=== PATIENT | female | born 1950 | race Caucasian/White ===

== ENCOUNTER 2024-06-11 09:16 | Day surgery (SDC) | payer MEDICARE ==
[~2024-06-11] VITALS: Ht 165.1 cm; Wt 64.0 kg
[~2024-06-11 09:16] MED LIST: ATOR40TA75 PO; CALC600T61 PO; LISI2.5T9 PO; LR 1,000 ML IV SCH; MIDAZOLAM INJ 2MG/2ML VIAL As Ordered ONE; fentaNYL 100 MCG/2 ML INJECTION As Ordered ONE
[2024-06-11] MEDS: CYCLOPENTOLATE 1% OPHTH SOLN 2ML BTL OD SCH (09:32)
[2024-06-11] MEDS: PHENYLEPHRINE 2.5% OPHTH SOL 2ML OD SCH (09:32)
[2024-06-11] MEDS: TETRACAINE 0.5% OPHTH SOLN 4ML OD SCH (09:32)
[2024-06-11] MEDS: FLURBIPROFEN 0.03% OPHTH SOLN 2.5 ML OD SCH (09:32)
[2024-06-11] MEDS: LIDOCAINE 1% SDV 5ML VIAL As Ordered ONE (10:28)
[2024-06-11] MEDS: CEFUROXIME 1MG/0.1ML INTRACAMERAL INJ As Ordered ONE (10:28)
[2024-06-11 10:45] VITALS: BP 136/60; TEMP 97.6; O2SAT 99
== END 2024-06-11 11:20 | disposition home or self-care (01) ==
LOC: M SDC 09:16
PROVIDERS: ATTEND Ophthalmology
DX: H25.013 Cortical age-related cataract, bilateral (principal); I10 Essential (primary) hypertension; E78.00 Pure hypercholesterolemia, unspecified; Z79.899 Other long term (current) drug therapy; Z91.048 Other nonmedicinal substance allergy status; Z91.040 Latex allergy status
CPT/HCPCS: 66984; J0697; J2250; J3010; V2632

== ENCOUNTER 2024-07-02 09:20 | Day surgery (SDC) | payer MEDICARE ==
[~2024-07-02] VITALS: Ht 165.1 cm; Wt 62.9 kg
[~2024-07-02 09:20] MED LIST changes: -MIDAZOLAM INJ 2MG/2ML VIAL As Ordered ONE; -fentaNYL 100 MCG/2 ML INJECTION As Ordered ONE
[2024-07-02] MEDS: CYCLOPENTOLATE 1% OPHTH SOLN 2ML BTL OS SCH (10:58)
[2024-07-02] MEDS: PHENYLEPHRINE 2.5% OPHTH SOL 2ML OS SCH (10:58)
[2024-07-02] MEDS: TETRACAINE 0.5% OPHTH SOLN 4ML OS SCH (10:59)
[2024-07-02] MEDS: FLURBIPROFEN 0.03% OPHTH SOLN 2.5 ML OS SCH (10:59)
[2024-07-02] MEDS ORDERED: propofoL 200 MG/20 ML VIAL As Ordered ONE (12:12)
[2024-07-02] MEDS ORDERED: LIDOCAINE 2% 100MG/5ML SDV (FOR ANES.) As Ordered ONE (12:12)
[2024-07-02] MEDS: LIDOCAINE 1% SDV 5ML VIAL As Ordered ONE (12:55)
[2024-07-02] MEDS: CEFUROXIME 1MG/0.1ML INTRACAMERAL INJ As Ordered ONE (12:56)
[2024-07-02 13:10] VITALS: BP 163/81; TEMP 97.5; O2SAT 98
== END 2024-07-02 13:33 | disposition home or self-care (01) ==
LOC: M SDC 09:20
PROVIDERS: ATTEND Ophthalmology
DX: H25.9 Unspecified age-related cataract (principal); Z91.018 Allergy to other foods; Z91.040 Latex allergy status; Z79.899 Other long term (current) drug therapy; Z98.41 Cataract extraction status, right eye
CPT/HCPCS: 66984; J0697; V2632